=== PATIENT | female | born 1990 | race Caucasian/White ===

== ENCOUNTER 2017-09-23 20:44 | Emergency (ER) | payer OTHER ==
[~2017-09-23] VITALS: Ht 152.4 cm; Wt 72.6 kg
[2017-09-23] MEDS ORDERED: CEPHALEXIN500 M1 PO (20:55)
[2017-09-23] MEDS ORDERED: LIDEX 0.05% CRE15 GM T (20:55)
== END 2017-09-23 21:08 | disposition home or self-care (01) ==
LOC: ED 20:44
DX: S70.361A Insect bite (nonvenomous), right thigh, initial encounter (principal); W57.XXXA Bitten or stung by nonvenomous insect and other nonvenomous arthropods, initial encounter; Y93.89 Activity, other specified; Y92.89 Other specified places as the place of occurrence of the external cause; Y99.8 Other external cause status

== ENCOUNTER 2024-06-29 23:25 | Emergency (ER) | payer OTHER ==
[~2024-06-29] VITALS: Ht 152.4 cm; Wt 81.6 kg
[~2024-06-29 23:25] MED LIST: CEPHALEXIN500 M1 PO; LIDEX 0.05% CRE15 GM T
[2024-06-29 23:57] LABS: BILIRUBIN Negative (Negative); BLOOD Negative (Negative); CLARITY Cloudy (Clear); COLOR Yellow (Yellow); GLUCOSE Negative (Negative); KETONE Trace (Negative); LEUKO ESTERASE 2+ (Negative); NITRITE Negative (Negative)
[2024-06-30 00:41] LABS: EPITHELIAL CELLS 31-40; WBC 16-20 wbc/hpf (0-5)
[2024-06-30 00:44] LABS: BACTERIA TRACE
[2024-06-30] MEDS ORDERED: cefTRIAXone Sodium 500 MG VIAL IM ONE (00:45)
[2024-06-30] MEDS ORDERED: AZITHROMYCIN 250 MG TAB PO ONE (00:50)
[2024-06-30] MEDS ORDERED: Water, Sterile 10 ML VIAL ONE (01:08)
== END 2024-06-30 00:58 | disposition home or self-care (01) ==
LOC: ED 23:25
PROVIDERS: Internal Medicine
DX: N89.8 Other specified noninflammatory disorders of vagina (principal); Z20.2 Contact with and (suspected) exposure to infections with a predominantly sexual mode of transmission; Z79.899 Other long term (current) drug therapy